=== PATIENT | male | born 1940 | race Two or more races ===

== ENCOUNTER → 2016-06-27 | Outpatient (CLI) | payer MEDICARE ==
--- NOTE | 2016-06-27 16:54 | RAD ---
PROCEDURE MRI lumbar spine without contrast. HISTORY Low back pain with worsening left leg radiculopathy for 2 days, history of spinal stenosis TECHNIQUE Multiplanar, multi sequential non contrast MR imaging was performed of the lumbar spine. COMPARISON None available at this time FINDINGS Lumbar vertebral body stature is adequate. There is advanced degenerative disc disease at L4-5 and L5-S1 and to a lesser degree at L1-L2 and L2-3. There is negligible posterior subluxation L5 relative to S1 and minimal grade 1 anterior spondylolisthesis at L2-3. There is multilevel variable endplate edema greatest at L4-5 and to lesser degree at other levels other than sparing L3-4 likely reactive/degenerative in etiology. Conus terminates at L1. There is straightening of the lumbar spine. There is somewhat diffuse narrowing of the lumbar spinal canal and neural foramina on a developmental basis. 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 L1-L2: There is minimal posterior disc osteophyte complex and bulge. There is mild to moderate facet degenerative change and mild buckling of the ligamentum flavum. Combination of findings results in mild to moderate spinal stenosis, lateral recess stenosis bilaterally. There is mild to moderate narrowing of the left neural foramen, right neural foramen adequate. L2-3: There is mild to moderate buckling of the ligamentum flavum and facet degenerative change. There is broad posterior bulge. Combination of findings results in moderate to severe spinal stenosis, limited preserved subarachnoid space. Neural foramina are adequate. L3-4: There is mild buckling of the ligamentum flavum and facet hypertrophic change. There is mild narrowing of the far lateral recesses bilaterally. There is negligible disc osteophyte complex. Neural foramina are not significantly narrowed, very minimal narrowing inferiorly. L4-5: There is mild to moderate facet degenerative change and mild buckling of the ligamentum flavum. There is broad posterior disc osteophyte complex and superimposed bulge/protrusion. There is resultant severe spinal stenosis, lateral recess stenosis bilaterally apparent with contact of the descending L5 nerve roots. There is moderate neural foramina compromise bilaterally by disc osteophyte complex and facet hypertrophic change. L5-S1: There is broad posterior disc osteophyte complex and bulge. This is near the descending S1 nerve roots greater on the left, mild narrowing of the left lateral recess. There is moderate to severe narrowing of the left neural foramen, minimal narrowing on the right. There is mild facet degenerative change greater on the left. IMPRESSION 1. There is severe spinal stenosis at L4-5, to a somewhat lesser degree at L2-3, other variable lateral recess stenosis at L1-L2, L3-4, and on the left at L5-S1 as described. 2. There is multilevel lumbar neural foramina compromise as stated greatest bilaterally at L4-5 and on the left at L5-S1. 3. There is more advanced degenerative disc disease L4-5 and L5-S1, to a lesser degree at more superior levels. Multilevel endplate edema is likely reactive/degenerative in etiology. There is multilevel spondylosis. Electronically signed by: Rodo Dumont MD (June 27, 2016 16:52:41)
== END | disposition home or self-care (01) ==
LOC: MRI 15:51
PROVIDERS: ATTEND Psychiatry & Neurology Neurology
DX: M48.06 Spinal stenosis, lumbar region (principal); M51.37 Other intervertebral disc degeneration, lumbosacral region; M47.896 Other spondylosis, lumbar region
CPT/HCPCS: 72148

== ENCOUNTER → 2017-08-28 | Outpatient (CLI) | payer MEDICARE | END | disposition home or self-care (01) | LOC: KCIC MRI 15:12 | DX: S83.241A Other tear of medial meniscus, current injury, right knee, initial encounter (principal); M94.261 Chondromalacia, right knee; X58.XXXA Exposure to other specified factors, initial encounter; Y93.89 Activity, other specified; Y92.89 Other specified places as the place of occurrence of the external cause; Y99.8 Other external cause status | CPT/HCPCS: 73721 ==